=== PATIENT | female | born 1985 | race Caucasian/White ===

== ENCOUNTER 2021-03-13 15:05 | Emergency (ER) | payer OTHER, MEDICAID, SELFPAY ==
[2021-03-13 15:12] VITALS: BP 113/69; PULSE 98; RESP 22; TEMP 36.9; O2SAT 98
--- NOTE | 2021-03-13 15:14 | DI.RAD.S_ITS ---
PROCEDURE: XR HAND RT MIN 3V INDICATIONS: punched a window TECHNIQUE: 3 views of the hand(s) acquired. COMPARISON: None. FINDINGS: Bones: No fractures or dislocations. Carpal bones are normally aligned. No suspicious bony lesions. Soft tissues: No suspicious soft tissue calcifications. No radiopaque foreign bodies are seen. IMPRESSION: No displaced fractures are seen. No radiopaque foreign bodies are seen. Dictated by: Mauricio Guy M.D. on 03/13/2021 at 14:31 Approved by: Mauricio Guy M.D. on 03/13/2021 at 14:32
[2021-03-13 17:55] VITALS: BP 124/84; PULSE 88; RESP 17; O2SAT 100
--- NOTE | 2021-03-13 18:16 | ED_ITS ---
HPI - Extremity Injury (Upper) <LESLIE Waller - Last Filed: 03/13/21 18:27> General Chief Complaint: Extremity Injury, Upper Stated Complaint: right hand x8 days pain Time Seen by Provider: 03/13/21 18:05 Source: patient Mode of arrival: Ambulatory History of Present Illness HPI narrative: 36-year-old female presents to the ED with right hand pain 8 days following punching a windshield.She reports that it was swollen for a few days and now is just bruised but still hurts very bad. She is able to move her hand with pain and is not healing as fast as anticipated. She denies any numbness or tingling, or other symptoms. She denies any wrist elbow or arm pain. Related Data Allergies Allergy/AdvReac Type Severity Reaction Status Date / Time azithromycin Allergy Verified 03/13/21 15:14 Penicillins Allergy Verified 03/13/21 15:14 promethazine [From Phenergan] Allergy Verified 03/13/21 15:14 Review of Systems <LESLIE Waller - Last Filed: 03/13/21 18:27> Review of Systems Narrative: General: denies fever, chills Head/Neck: denies headache, neck pain Eyes: denies visual changes, eye pain Cardio: denies chest pain, palpitations Respiratory: denies shortness of breath, cough GI: denies abdominal pain, nausea, vomiting, or diarrhea : denies dysuria, hematuria MSK: Right hand pain over 2nd digit, no muscular weakness Skin: denies rash, itching Neuro: denies numbness, tingling Exam <LESLIE Waller - Last Filed: 03/13/21 18:27> Narrative Exam Narrative: Independently reviewed vitals signs and nursing notes. General: Awake, alert, nontoxic, no cardiorespiratory distress Head/Neck: Atraumatic, neck full range of motion Eyes: EOMI, conjunctiva normal Nose: nares patent, no rhinorrhea Mouth/Throat: moist mucus membranes, posterior pharynx normal, no oral lesions Cardio: Regular rate and rhythm, no peripheral edema Respiratory: respirations unlabored without wheezing, stridor, or rales. No retractions. GI: Abdomen soft, nontender MSK: Point tenderness over 2nd metacarpal and 2nd digit proximal phalange, no snuffbox tenderness, full ROM of all fingers including flexion and extension Independently reviewed vitals signs and nursing notes. Initial Vital Signs Initial Vital Signs: Vital Signs Temperature 98.4 F 03/13/21 15:12 Pulse Rate 98 H 03/13/21 15:12 Respiratory Rate 22 03/13/21 15:12 Blood Pressure 113/69 03/13/21 15:12 Pulse Oximetry 98 03/13/21 15:12 <Clare Hernandez DO - Last Filed: 03/18/21 03:33> Initial Vital Signs Initial Vital Signs: Vital Signs Temperature 98.4 F 03/13/21 15:12 Pulse Rate 98 H 03/13/21 15:12 Respiratory Rate 22 03/13/21 15:12 Blood Pressure 113/69 03/13/21 15:12 Pulse Oximetry 98 03/13/21 15:12 Procedures <LESLIE Waller - Last Filed: 03/13/21 18:27> Orthopedic Splinting/Casting Injury #1: Side: right Upper Extremity Injury Location: hand and finger Upper Extremity Immobilizer: finger (other) (Second and 3rd digits splinted in position of comfort/extension) Post splinting neuro exam: intact Post splinting vascular exam: intact Placed by: Nursing Course <LESLIE Waller - Last Filed: 03/13/21 18:27> Orders Ordered: ED Orders 03/13/21 15:14 XR hand RT min 3V Stat Vital Signs Vital signs: Vital Signs - 8 hr 03/13/21 15:12 03/13/21 17:55 Temperature 98.4 F Pulse Rate 98 H 88 Respiratory Rate 22 17 Blood Pressure 113/69 124/84 Pulse Oximetry 98 100 <Clare Hernandez DO - Last Filed: 03/18/21 03:33> Orders Ordered: ED Orders 03/13/21 15:14 XR hand RT min 3V Stat Vital Signs Vital signs: Vital Signs - 8 hr 03/13/21 15:12 03/13/21 17:55 Temperature 98.4 F Pulse Rate 98 H 88 Respiratory Rate 22 17 Blood Pressure 113/69 124/84 Pulse Oximetry 98 100 MDM - Extremity Injury (Upper) <LESLIE Waller - Last Filed: 03/13/21 18:27> Imaging Data Extremity x-ray #1: Radiologist's Impression: PROCEDURE:? XR HAND RT MIN 3V ? INDICATIONS:? punched a window ? TECHNIQUE:? 3 views of the hand(s) acquired.? ? COMPARISON:? None. ? FINDINGS:? ? Bones:? No fractures or dislocations.? Carpal bones are normally aligned.? No suspicious bony lesions.? ? Soft tissues:? No suspicious soft tissue calcifications.? No radiopaque foreign bodies are seen.? ? ? IMPRESSION:? No displaced fractures are seen. ? No radiopaque foreign bodies are seen.? ? ? Dictated by: Mauricio Guy M.D. on 03/13/2021 at 14:31 ? ? Approved by: Mauricio Guy M.D. on 03/13/2021 at 14:32 ? MDM Narrative Medical decision making narrative: 36-year-old right-handed female presents to ED with right hand pain 8 days following punching a window. Right Hand x-ray was negative. Second and 3rd digits splinted in position of comfort and extension. Initial ddx to include but not limited to tendon injury, and scaphoid fracture. Recommend ice and Tylenol and Motrin, follow-up with orthopedics if not better in 1 week. Patient is appropriate and amenable to discharge home. Vital signs are stable on repeat examination is unremarkable. Patient has been informed of results. Patient has been given strict return to ER precautions for any new or worsening symptoms. Patient understands to follow up closely with outpatient providers as instructed. Patient understands plan and agrees to discharge home. All questions and concerns answered at this time. Discharge Plan Departure Patient Disposition: Home Clinical Impression: Injury of Hand Qualifiers: Encounter type: initial encounter Laterality: left Qualified Code(s): S69.92XA - Unspecified injury of left wrist, hand and finger(s), initial encounter Instructions: DI for Hand Injury Activity Restrictions/Additional Instructions: *You have been diagnosed with a left hand injury. There are no fractures in your hand, good news! You may still have pain and swelling for a week or so. Wear your splint as tolerated, it may help it heal faster. If not better in a week please see [facility] orthopedics, phone number below. Alternate Tylenol and Motrin or naproxen for pain. *What to do: *Please continue to take your regular medications as directed. [ ] New medication prescriptions sent to your pharmacy: [ ] [ ] New medication written as a paper prescription [x] No new medications given *Please follow up with your primary care provider in 2-3 days, call for an appointment. Let them know you were seen in the Emergency Department and that we ask that you be seen in follow up. We will electronically transmit a record of today's note if your PCP is in our system *If you do not have a primary care provider please contact the [facility] Resource line at [phone]. They will ask some questions about your medical history and help get you set up with a doctor in the community. *Return to Emergency Department if you should have any new, worsening or concerning symptoms, such as [fever greater than 101F, chills, worsening pain, persistent vomiting or other bothersome symptoms] Referrals: Sukumar Prater MD [Physician] - <Clare Hernandez DO - Last Filed: 03/18/21 03:33> Cosign ED Attending Petraature Attestation: I was immediately available in the department for consultation. Documentation has been reviewed. I agree with assessment and plan.
--- NOTE | 2021-03-13 18:56 | PC.NURSE ---
pt has pain on top of rt hand to index finger. splint made with orthoglass.
== END 2021-03-13 18:45 | disposition home or self-care (01) ==
PROVIDERS: Emergency Provider Nurse Practitioner Critical Care Medicine
DX: S69.92XA Unspecified injury of left wrist, hand and finger(s), initial encounter (principal); W22.8XXA Striking against or struck by other objects, initial encounter
CPT/HCPCS: 73130; 99283

== ENCOUNTER 2021-05-06 11:35 | Emergency (ER) | payer OTHER, MEDICAID, SELFPAY ==
[2021-05-06 11:44] VITALS: BP 125/73; PULSE 84; RESP 14; TEMP 36.9; O2SAT 95; BMI 23.5
--- NOTE | 2021-05-06 11:57 | ED.ABDPAIN ---
HPI - Abdominal Pain <Ady Madsen PA-C - Last Filed: 05/06/21 14:39> General Chief Complaint: Abdominal Pain Stated Complaint: Stomach pain Time Seen by Provider: 05/06/21 11:54 Source: patient Mode of arrival: Ambulatory Limitations: no limitations History of Present Illness HPI narrative: Karen presents today with chief complaint of abdominal discomfort in her lower abdomen that started about 5 days ago. She reports that it has not gotten better since this started. Her pain is not all the time. Pressing on the area, walking, occasionally sitting makes her pain worse. She denies any fever, nausea, vomiting, diarrhea, constipation, vaginal discharge, vaginal bleeding, rash, increased frequency urination, burning with urination, blood in her urine, or any other acute concerns or complaints at this time. She has past medical history of Caesarean section x2. She had her fallopian tubes removed but still has her ovaries and uterus. Related Data Allergies Allergy/AdvReac Type Severity Reaction Status Date / Time azithromycin Allergy Verified 05/06/21 11:44 Penicillins Allergy Verified 05/06/21 11:44 promethazine [From Phenergan] Allergy Verified 05/06/21 11:44 Review of Systems <Ady Madsen PA-C - Last Filed: 05/06/21 14:39> Review of Systems Narrative: As per HPI Patient History <Ady Madsen PA-C - Last Filed: 05/06/21 14:39> Social History Smoking Status: Current every day smoker Smoking Status: Current every day smoker tobacco type: vaping alcohol intake frequency: holidays/special occasions only Substance Use Type: does not use Exam <Ady Madsen PA-C - Last Filed: 05/06/21 14:39> Narrative Exam Narrative: Exam Narrative: Const General: cooperative, healthy appearing, comfortable, no acute distress, well developed and well groomed Nutritional Appearance: average body habitus Orientation: alert and oriented x3 HENMT Head: normal to inspection and atraumatic Ears: hearing grossly normal bilaterally Nose: external nose normal and nares normal Face and sinus: normal facial exam Neck Neck: normal visual inspection and supple Resp Effort & Inspection: normal respiratory effort, able to speak in complete sentences, no audible wheezes, not labored, no nasal flaring and no respiratory distress, clear to auscultation bilaterally Cardiac Regular rate, regular rhythm, no discernible murmurs, rubs or gallops GI Nondistended, slight tenderness to right lower quadrant of abdomen, no guarding, negative Rodriguez sign, negative rebound tenderness, negative Rovsing sign. No CVA tenderness noted. Skin No rash or lesions noted. Neuro General: alert, oriented x3, gait normal, tone normal and moves all extremities Cognition: normal cognition Speech: speech normal Gait: normal gait Psych Appearance: grossly normal and well kempt Mental Status: mental status grossly normal Speech and Movement: speech and movement normal Mood: congruent mood Affect: normal affect Initial Vital Signs Initial Vital Signs: Vital Signs Temperature 98.4 F 05/06/21 11:44 Pulse Rate 84 05/06/21 11:44 Respiratory Rate 14 05/06/21 11:44 Blood Pressure 125/73 05/06/21 11:44 Pulse Oximetry 95 05/06/21 11:44 <Alf Sher MD - Last Filed: 05/06/21 15:33> Initial Vital Signs Initial Vital Signs: Vital Signs Temperature 98.4 F 05/06/21 11:44 Pulse Rate 84 05/06/21 11:44 Respiratory Rate 14 05/06/21 11:44 Blood Pressure 125/73 05/06/21 11:44 Pulse Oximetry 95 05/06/21 11:44 Course <Ady Madsen PA-C - Last Filed: 05/06/21 14:39> Orders Ordered: ED Orders 05/06/21 11:40 Urine Microscopic Stat 05/06/21 11:50 Complete Blood Count AUTO DIFF Stat Comprehensive Metabolic Panel Stat Lipase Stat 05/06/21 12:28 CT abdomen pelvis w con Stat 05/06/21 13:23 US pelvic complete Stat Discontinued Medications Hydrocodone Bitart/Acetaminophen (Hydrocodone/Acet 5/325 Tablet) 1 tab PO NOW ONE Stop: 05/06/21 13:25 Last Admin: 05/06/21 13:40 Dose: 1 tab Documented by: KARSON Ketorolac Tromethamine (Ketorolac 30 Mg/Ml Vial) 15 mg IV NOW ONE Stop: 05/06/21 12:13 Last Admin: 05/06/21 12:29 Dose: 15 mg Documented by: LOTTIE Vital Signs Vital signs: Vital Signs - 8 hr 05/06/21 11:44 05/06/21 14:29 Temperature 98.4 F Pulse Rate 84 78 Respiratory Rate 14 16 Blood Pressure 125/73 132/80 Pulse Oximetry 95 100 <Alf Sher MD - Last Filed: 05/06/21 15:33> Orders Ordered: ED Orders 05/06/21 11:40 Urine Microscopic Stat 05/06/21 11:50 Complete Blood Count AUTO DIFF Stat Comprehensive Metabolic Panel Stat Lipase Stat 05/06/21 12:28 CT abdomen pelvis w con Stat 05/06/21 13:23 US pelvic complete Stat Discontinued Medications Hydrocodone Bitart/Acetaminophen (Hydrocodone/Acet 5/325 Tablet) 1 tab PO NOW ONE Stop: 05/06/21 13:25 Last Admin: 05/06/21 13:40 Dose: 1 tab Documented by: KARSON Ketorolac Tromethamine (Ketorolac 30 Mg/Ml Vial) 15 mg IV NOW ONE Stop: 05/06/21 12:13 Last Admin: 05/06/21 12:29 Dose: 15 mg Documented by: LOTTIE Vital Signs Vital signs: Vital Signs - 8 hr 05/06/21 11:44 05/06/21 14:29 Temperature 98.4 F Pulse Rate 84 78 Respiratory Rate 14 16 Blood Pressure 125/73 132/80 Pulse Oximetry 95 100 MDM - Abdominal Pain <Ady Madsen PA-C - Last Filed: 05/06/21 14:39> Lab Data Result diagrams: 05/06/21 11:50 05/06/21 11:50 Labs: Lab Results 05/06/21 05/06/21 05/06/21 Range/Units 11:40 11:50 11:50 WBC 5.9 (4.5-11.0) X10^3/uL RBC 4.20 (4.0-5.2) X10^6/uL Hgb 13.0 (12.0-16.0) g/dL Hct 38.1 (36-46) % MCV 90.9 (80-100) fL MCH 31.0 (26-34) PG MCHC 34.1 (30-36) % RDW 13.3 (11.6-14.8) % Plt Count 265 (150-400) X10^3/uL Neut % (Auto) 74.8 (50-75) % Lymph % (Auto) 17.7 L (25-40) % [place] % (Auto) 5.6 (3-14) % Eos % (Auto) 0.8 L (2-4) % Baso % (Auto) 1.1 (0-2) % Neut # (Auto) 4400 (8217-0004) /uL Lymph # (Auto) 1000 L (2691-6436) /uL [place] # (Auto) 300 (0-900) /uL Eos # (Auto) 0 (0-450) /uL Baso # (Auto) 100 (0-100) /uL Sodium 139 (137-145) mmol/L Potassium 4.4 (3.4-5.1) mmol/L Chloride 103 (98-107) mmol/L Carbon Dioxide 30 (22-32) mmol/L BUN 16 (7-17) mg/dL Creatinine 0.81 (0.52-1.04) mg/dL Estimated GFR > 60.0 (>60) mL/min BUN/Creatinine Ratio 19.8 (6-22) Glucose 97 (70-100) mg/dL Calcium 9.8 (8.4-10.2) mg/dL Total Bilirubin 0.6 (0.2-1.3) mg/dL AST 26 (14-36) IU/L ALT 16 (<35) IU/L Alkaline Phosphatase 69 (38-126) U/L Total Protein 7.9 (6.3-8.2) g/dL Albumin 4.6 (3.5-5.0) g/dL Globulin 3.3 (1.7-4.1) g/dL Albumin/Globulin Ratio 1.4 (1.0-2.8) Lipase 42 (23-300) U/L Urine RBC 1-5/hpf (0-5/HPF) Urine WBC 1-5/hpf (0-5/HPF) Ur Squamous Epith Cells 5-10 /hpf H (0-5/HPF) Amorphous Sediment 1+ Urine Bacteria Occasional (0-1) (None) Urine Mucus 1+ H (Negative) Ur Culture Indicated? Cult not indicated Point of care testing: Point of Care Testing Test Results Negative Urine Dip Bedside Urine Glucose Negative Bedside Urine Bilirubin - Negative Bedside Urine Ketone - Negative Urine Specific [place] 1.015 Bedside Urine Occult Blood ++ Bedside Urine pH 7 Bedside Urine Protein + 30 Bedside Urine Urobilinogen - Negative Bedside Urine Nitrite - Negative Bedside Urine Leukocytes - Negative Esterase MDM Narrative Medical decision making narrative: Differential diagnosis includes ovarian torsion, acute appendicitis, ectopic , nephrolithiasis, acute pyelonephritis, acute cholecystitis, acute hepatitis, acute pancreatitis, psoas abscess. Patient is overall well-appearing at this time. She has reassuring physical examination as well as reassuring diagnostic imaging. No obvious signs of infection noted. I do not suspect any acute life-threatening etiology to her symptoms at this time. Strict ER return precautions were discussed with the patient extensively. Patient verbalizes understanding and agrees to plan and has no further concerns at this time. Thank you A [id number]-[id number] system was used with the dictation of this note. Please disregard any spelling or grammatical errors. <Alf Sher MD - Last Filed: 05/06/21 15:33> Lab Data Labs: Lab Results 05/06/21 05/06/21 05/06/21 Range/Units 11:40 11:50 11:50 WBC 5.9 (4.5-11.0) X10^3/uL RBC 4.20 (4.0-5.2) X10^6/uL Hgb 13.0 (12.0-16.0) g/dL Hct 38.1 (36-46) % MCV 90.9 (80-100) fL MCH 31.0 (26-34) PG MCHC 34.1 (30-36) % RDW 13.3 (11.6-14.8) % Plt Count 265 (150-400) X10^3/uL Neut % (Auto) 74.8 (50-75) % Lymph % (Auto) 17.7 L (25-40) % [place] % (Auto) 5.6 (3-14) % Eos % (Auto) 0.8 L (2-4) % Baso % (Auto) 1.1 (0-2) % Neut # (Auto) 4400 (3094-9506) /uL Lymph # (Auto) 1000 L (0313-5888) /uL [place] # (Auto) 300 (0-900) /uL Eos # (Auto) 0 (0-450) /uL Baso # (Auto) 100 (0-100) /uL Sodium 139 (137-145) mmol/L Potassium 4.4 (3.4-5.1) mmol/L Chloride 103 (98-107) mmol/L Carbon Dioxide 30 (22-32) mmol/L BUN 16 (7-17) mg/dL Creatinine 0.81 (0.52-1.04) mg/dL Estimated GFR > 60.0 (>60) mL/min BUN/Creatinine Ratio 19.8 (6-22) Glucose 97 (70-100) mg/dL Calcium 9.8 (8.4-10.2) mg/dL Total Bilirubin 0.6 (0.2-1.3) mg/dL AST 26 (14-36) IU/L ALT 16 (<35) IU/L Alkaline Phosphatase 69 (38-126) U/L Total Protein 7.9 (6.3-8.2) g/dL Albumin 4.6 (3.5-5.0) g/dL Globulin 3.3 (1.7-4.1) g/dL Albumin/Globulin Ratio 1.4 (1.0-2.8) Lipase 42 (23-300) U/L Urine RBC 1-5/hpf (0-5/HPF) Urine WBC 1-5/hpf (0-5/HPF) Ur Squamous Epith Cells 5-10 /hpf H (0-5/HPF) Amorphous Sediment 1+ Urine Bacteria Occasional (0-1) (None) Urine Mucus 1+ H (Negative) Ur Culture Indicated? Cult not indicated Point of care testing: Point of Care Testing Test Results Negative Urine Dip Bedside Urine Glucose Negative Bedside Urine Bilirubin - Negative Bedside Urine Ketone - Negative Urine Specific [place] 1.015 Bedside Urine Occult Blood ++ Bedside Urine pH 7 Bedside Urine Protein + 30 Bedside Urine Urobilinogen - Negative Bedside Urine Nitrite - Negative Bedside Urine Leukocytes - Negative Esterase Discharge Plan Departure Patient Disposition: Home Clinical Impression: Abdominal pain Qualifiers: Abdominal location: unspecified location Qualified Code(s): R10.9 - Unspecified abdominal pain Instructions: DI for Abdominal Pain-Adult Activity Restrictions/Additional Instructions: It was very nice to meet you this afternoon. Your evaluation today has been reassuring overall. I would like you to stay well hydrated, use ibuprofen or acetaminophen as needed for pain management. Please follow-up with your primary care provider or return here if you have fever, worsening abdominal pain, or any other acute concerns or complaints. Thank you Ady Madsen PA-C
[2021-05-06 12:06] LABS: Add Manual Diff / Slide Review NO; Basophils Absolute Auto 100 /uL (0-100); Basophils Percent Auto 1.1 % (0-2); Eosinophils Absolute Auto 0 /uL (0-450); Eosinophils Percent Auto 0.8 % (2-4); Hematocrit 38.1 % (36-46); Lymphocytes Absolute Auto 1000 /uL (1100-4500); Lymphocytes Percent Auto 17.7 % (25-40); Mean Corpuscular HGB Conc 34.1 % (30-36); Mean Corpuscular Volume 90.9 fL (80-100); Monocytes Absolute Auto 300 /uL (0-900); Monocytes Percent Auto 5.6 % (3-14); Neutrophils Absolute Auto 4400 /uL (1500-7000); Neutrophils Percent Auto 74.8 % (50-75); Platelet Count 265 X10^3/uL (150-400); Red Cell Distribution Width 13.3 % (11.6-14.8); White Blood Cell Count 5.9 X10^3/uL (4.5-11.0)
[2021-05-06 12:24] LABS: Alanine Aminotransferase 16 IU/L (<35); Albumin 4.6 g/dL (3.5-5.0); Albumin Globulin Ratio 1.4 (1.0-2.8); Alkaline Phosphatase 69 U/L (38-126); Aspartate Aminotransferase 26 IU/L (14-36); BUN Creatinine Ratio 19.8 (6-22); Bilirubin Total 0.6 mg/dL (0.2-1.3); Blood Urea Nitrogen 16 mg/dL (7-17); Calcium 9.8 mg/dL (8.4-10.2); Carbon Dioxide 30 mmol/L (22-32); Chloride 103 mmol/L (98-107); Estimated Glomerular Filt Rate > 60.0 mL/min (>60); Globulin 3.3 g/dL (1.7-4.1); Glucose 97 mg/dL (70-100); HEMOLYSIS < 15 (0-50); Lipase 42 U/L (23-300); Potassium 4.4 mmol/L (3.4-5.1); Sodium 139 mmol/L (137-145); Total Protein 7.9 g/dL (6.3-8.2)
--- NOTE | 2021-05-06 12:28 | DI.CT.S_ITS ---
PROCEDURE: CT ABDOMEN PELVIS W CON INDICATIONS: RLQ pain TECHNIQUE: After the administration of intravenous contrast, axial sections acquired from the lung bases to the pubic symphysis. Coronal and sagittal reformats were performed. For radiation dose reduction, the following was used: automated exposure control, adjustment of mA and/or kV according to patient size. COMPARISON: None. FINDINGS: Image quality: Excellent. Lung bases: Unremarkable. Heart: No significant findings. ABDOMEN: Liver: Focal hypoattenuation adjacent to the falciform ligament likely represents focal fat. The liver is otherwise unremarkable. Gallbladder: Unremarkable Biliary ducts: Unremarkable. Pancreas: Unremarkable. Spleen: Unremarkable. Adrenal Glands: Unremarkable. Kidneys and Ureters: Symmetric enhancement. No hydronephrosis. Nonobstructing nephrolith within the superior pole of the right kidney measuring up to 7 millimeters. Ureters are normal in course and caliber. Stomach and Bowel: Stomach, small bowel loops, and colon are unremarkable. The appendix is not definitely visualized, likely surgically absent. No secondary findings to suggest appendicitis. Peritoneum: No abnormal intraperitoneal fluid. No free air. Ventral Wall: No hernias. Abdominal Nodes: No retroperitoneal or mesenteric adenopathy by size criteria. Vessels: Aorta and inferior vena cava are normal in size. PELVIS: Pelvic Organs: Unremarkable for patient's age with simple appearing cysts with the largest within the left ovary measuring 2.1 centimeters in greatest diameter. Trace amount of fluid within the pelvis, likely physiologic. Bladder: Unremarkable. Pelvic Nodes: No enlarged lymph nodes. Miscellaneous: No hernias are seen. Bones: Bilateral pars defects of L5 with minimal grade 1 anterolisthesis of L5 on S1. IMPRESSION: Small amount of fluid about it within the pelvis, likely physiologic. Otherwise, no acute intra-abdominal/pelvic abnormality. Bilateral pars defects of L5 with grade 1 anterolisthesis of L5 on S1. Dictated by: Elder Ling D.O. on 05/06/2021 at 12:10 Approved by: Elder Ling D.O. on 05/06/2021 at 12:16
[2021-05-06 12:29] LABS: Amorphous Sediment Urine 1+; Bacteria Urine Occasional (0-1); Culture Indicated Urine Cult Not Indicated; Mucus Urine 1+ (Negative); RBC Urine 1-5/HPF (0-5/HPF); Squamous Epithelial Cell Urine 5-10 /HPF (0-5/HPF); WBC Urine 1-5/HPF (0-5/HPF)
[2021-05-06] MEDS: KETOROLAC 30 MG/ML VIAL 15 MG IV (12:29)
--- NOTE | 2021-05-06 13:23 | DI.US.S_ITS ---
PROCEDURE: US PELVIC COMPLETE INDICATIONS: lower abd pain TECHNIQUE: Real-time scanning was performed of the pelvic organs, with image documentation. Additional endovaginal scanning was necessary due to incomplete visualization of the adnexal and endometrial structures by transabdominal scanning. COMPARISON: None. FINDINGS: Uterus: Uterus is normal in size at 8.8 x 4.2 x 3.4 cm. The endometrium measures 8 mm in combined thickness. No suspicious mass. Ovaries: The right ovary measures 2.6 x 1.6 x 1.4 centimeters. The left ovary measures 2.4 x 1.2 x 1.4 centimeters. No suspicious cystic or solid mass. Bilateral arterial and venous waveforms are documented bilaterally. Other: No pathologic free abdominal or pelvic fluid. Trace debris noted within the bladder. Multiple prominent periuterine vessels which increased in size and flow on Valsalva measuring approximately 5 millimeters. IMPRESSION: Prominent periuterine vessels which may be seen in the setting of pelvic congestion syndrome in the correct clinical setting. Otherwise unremarkable appearance of the uterus and ovaries. Slight debris within the urinary bladder. Recommend correlation with urinalysis to exclude infection. Dictated by: Elder Ling D.O. on 05/06/2021 at 13:31 Approved by: Elder Ling D.O. on 05/06/2021 at 13:34
[2021-05-06] MEDS: HYDROCODONE/ACET 5/325 TABLET 1 TAB PO (13:40)
[2021-05-06 14:29] VITALS: BP 132/80; PULSE 78; RESP 16; O2SAT 100
== END 2021-05-06 14:34 | disposition home or self-care (01) ==
PROVIDERS: Emergency Medicine; Emergency Provider Physician Assistant
DX: R10.30 Lower abdominal pain, unspecified (principal)
CPT/HCPCS: 36415; 74177; 76856; 80053; 81003; 81015; 81025; 83690; 85025; 96374; 99284; J1885; Q9967